=== PATIENT | female | born 1965 | race Caucasian/White ===

== ENCOUNTER 2017-03-29 11:33 | Emergency (ER) | payer BC ==
--- NOTE | 2017-03-29 11:54 | ED NURSING NOTES ---
Clinical Report - Nurses [facility] [address] [place] [address] 03/29/2017 11:33 Patient: CHUCK ZHONG DISPOSITION / DISCHARGE 11:40. The patient left the Emergency Department before triage; patient was accompanied by a hand button splitter. The patient appears to be alert, oriented x4, coherent and in no acute distress (Patient stated she wanted inpatient detox for etoh.). The patient stated is leaving the ED (Wanting inpatient detox). Notified the ED physician of patient departure. Prior to leaving the ED, she was advised to return if needed. She left the Emergency Department ambulatory and via private vehicle. ( Patient given list of facilities for detox, left with hand button splitter. Patient already seen, and treated at another facility for GLF and injuries.). --11:53 Shiloh Shepherd R.N. Locked/Released at 03/29/2017 12:00 by Shiloh Shepherd R.N.
--- NOTE | 2017-03-29 11:54 | ED NURSING NOTES ---
Clinical Report - Nurses [facility] [address] [place] [address] 03/29/2017 11:33 Patient: CHUCK ZHONG DISPOSITION / DISCHARGE 11:40. The patient left the Emergency Department before triage; patient was accompanied by a nonfarm animal caretaker. The patient appears to be alert, oriented x4, coherent and in no acute distress (Patient stated she wanted inpatient detox for etoh.). The patient stated is leaving the ED (Wanting inpatient detox). Notified the ED physician of patient departure. Prior to leaving the ED, she was advised to return if needed. She left the Emergency Department ambulatory and via private vehicle. ( Patient given list of facilities for detox, left with nonfarm animal caretaker. Patient already seen, and treated at another facility for GLF and injuries.). --11:53 Shiloh Shepherd R.N. Locked/Released at 03/29/2017 12:00 by Shiloh Shepherd R.N.
--- NOTE | 2017-03-29 12:00 | ED MED RECONCILIATION SUMMARY ---
Patient: CHUCK ZHONG Medication Reconciliation Report [facility] VisitID: [id number] [address] [place] [place] [address] 51y, F Registration Date/Time: 03/29/2017 Weight: (not available) Height/Length: (not available) BMI: (not available) ALLERGIES: The patient's Home Medications are listed below: Not obtained. The source(s) of the original Home Medication information: Not obtained. The following Medications were given to the patient in the Emergency Department: None. The following Medications were prescribed to the patient: None.
--- NOTE | 2017-03-29 12:00 | ED MAR SUMMARY ---
..... Medication Administration Record [facility] [address] [place], [place] [id number] Patient: CHUCK ZHONG Visit ID: [id number] 51y, F Weight: (not available) Height/Length: (not available) BMI: (not available) ALLERGIES:
--- NOTE | 2017-03-29 12:00 | ED MED RECONCILIATION SUMMARY ---
Patient: CHUCK ZHONG Medication Reconciliation Report [facility] VisitID: [id number] [address] [place] [address] 51y, F Registration Date/Time: 03/29/2017 Weight: (not available) Height/Length: (not available) BMI: (not available) ALLERGIES: The patient's Home Medications are listed below: Not obtained. The source(s) of the original Home Medication information: Not obtained. The following Medications were given to the patient in the Emergency Department: None. The following Medications were prescribed to the patient: None.
--- NOTE | 2017-03-29 12:00 | ED MAR SUMMARY ---
..... Medication Administration Record [facility] [address] [place], [place] [id number] Patient: CHUCK ZHONG Visit ID: [id number] 51y, F Weight: (not available) Height/Length: (not available) BMI: (not available) ALLERGIES:
== END 2017-03-29 11:40 | disposition left against medical advice (07) ==
LOC: ED SRH 11:33
DX: Z53.21 Procedure and treatment not carried out due to patient leaving prior to being seen by health care provider (principal)